=== PATIENT | female | born 1980 | race Caucasian/White ===

== ENCOUNTER 2017-11-04 03:58 | Emergency (ER) | payer SELFPAY ==
[~2017-11-04] VITALS: Ht 157.5 cm; Wt 131.5 kg
--- NOTE | 2017-11-04 05:21 | NUR ---
Pt stable for discharge per Dr. Tucker. Pt given ACI. Pt verbalized understanding of dc instructions. Pt ambulated to 's room with steady gait to wait for his disposition
[2017-11-04 05:24] VITALS: BP 157/86
== END 2017-11-04 05:24 | disposition home or self-care (01) ==
LOC: ER 04:01
DX: J20.9 Acute bronchitis, unspecified (principal); M32.9 Systemic lupus erythematosus, unspecified; E66.01 Morbid (severe) obesity due to excess calories; Z88.0 Allergy status to penicillin
CPT/HCPCS: 71010; A4663

== ENCOUNTER 2018-10-05 03:21 | Emergency (ER) | payer SELFPAY ==
[~2018-10-05] VITALS: Ht 157.5 cm; Wt 113.4 kg
[2018-10-05] MEDS ORDERED: ALBUTEROL SULFATE 2.5 MG/3 ML NEBU NEB ONE (03:30)
[2018-10-05] MEDS ORDERED: IPRATROPIUM BROMIDE 0.5 MG/2.5 ML NEBU NEB ONE (03:30)
[2018-10-05] MEDS ORDERED: IPRATROPIUM BROMIDE 0.5 MG/2.5 ML NEBU ONE ×2 (03:35→03:58)
[2018-10-05] MEDS ORDERED: ALBUTEROL SULFATE 2.5 MG/3 ML NEBU ONE ×2 (03:35→03:58)
[2018-10-05 03:45] LABS: BASOPHILS # (AUTO) 0.1 K/uL (0.0-8.0); EOSINOPHILS # (AUTO) 0.4 K/uL (0.0-0.7); EOSINOPHILS % (AUTO) 5.8 % (0.0-7.0); HEMATOCRIT 36.1 % (31.2-41.9); LYMPHOCYTES # (AUTO) 2.5 K/uL (20.0-40.0); LYMPHOCYTES % (AUTO) 41.7 % (20.5-51.5); MEAN CORPUSCULAR HEMOGLOBIN 27.3 uug (24.7-32.8); MEAN CORPUSCULAR HGB CONC 33 g/dL (32.3-35.6); MEAN CORPUSCULAR VOLUME 82.3 fL (75.5-95.3); MONOCYTES # (AUTO) 0.4 K/uL (2.0-10.0); MONOCYTES % (AUTO) 6.9 % (0.0-11.0); NEUTROPHILS # (AUTO) 2.7 K/uL (1.8-8.9); NEUTROPHILS % (AUTO) 44.6 % (38.5-71.5); PLATELET COUNT (AUTO) 309 K/uL (179-408); RED BLOOD CELL COUNT(AUTO) 4.38 MIL/uL (3.63-4.92); WHITE BLOOD COUNT (AUTO) 6.1 K/uL (3.8-11.8)
[2018-10-05 03:52] LABS: CREATININE 0.9 mg/dL (0.6-1.3); POTASSIUM 3.9 mmol/L (3.5-5.1)
--- NOTE | 2018-10-05 03:52 | NUR ---
Pt. walked into ED c/o SOB, has difficulty speaking full and complete sentences d/t SOB,
[2018-10-05] MEDS: IPRATROPIUM BROMIDE 0.5 MG/2.5 ML NEBU NEB ONE ×2 (03:59→04:02)
[2018-10-05] MEDS: ALBUTEROL SULFATE 2.5 MG/3 ML NEBU NEB ONE ×2 (03:59→04:02)
[2018-10-05] MEDS ORDERED: predniSONE 10 MG TABLET PO ONE (04:00)
[2018-10-05] MEDS ORDERED: predniSONE 10 MG TABLET ONE (04:02)
--- NOTE | 2018-10-05 04:50 | NUR ---
Patient discharged to home in stable conditon. Written and verbal after care instructions given. Patient verbalizes understanding of instructions. Pt. d/c w/ prescription per MD order, left w/ all belongings, VSS, no acute distress
[2018-10-05 04:52] VITALS: BP 152/87
== END 2018-10-05 04:53 | disposition home or self-care (01) ==
LOC: ER 03:23
DX: J98.01 Acute bronchospasm (principal); R06.00 Dyspnea, unspecified; E66.9 Obesity, unspecified; Z88.0 Allergy status to penicillin
CPT/HCPCS: 36415; 71045; 80048; 83880; 84484; 84702; 85025; 85379; 93005; 94640 ×2; 99284; J7512; 70030-TC; A4663; J3590

== ENCOUNTER 2019-01-17 22:09 | Emergency (ER) | payer SELFPAY ==
[~2019-01-17] VITALS: Ht 157.5 cm; Wt 90.7 kg
--- NOTE | 2019-01-17 22:24 | NUR ---
Patient ambulated with stable gait. AAOx4. Speech is clear, and speaks in complete sentences. Patient came in for c/o L.Ear pain x 1day. Patient abruptly woke up in the middle of the night experiencing throbbing/dull pain. Pain is 7/10 when talking and chewing. Pain is 4/10 when steady. No c/o of any dizziness. Patient in bed at lowest position, side rails upx2, call light within reach. Fall precautions implemented per protocol.
[2019-01-17 22:33] VITALS: BP 161/89
== END 2019-01-17 22:33 | disposition home or self-care (01) ==
LOC: ER 22:10
DX: H66.92 Otitis media, unspecified, left ear (principal); Z88.0 Allergy status to penicillin
CPT/HCPCS: A4663

== ENCOUNTER 2019-02-20 18:11 | Emergency (ER) | payer MEDICAID ==
[~2019-02-20] VITALS: Ht 157.5 cm; Wt 90.7 kg
[2019-02-20] MEDS ORDERED: diphenhydrAMINE 50 MG/1 ML VIAL IM ONE (18:45)
[2019-02-20] MEDS ORDERED: predniSONE 20 MG TABLET PO ONE (18:45)
[2019-02-20] MEDS ORDERED: predniSONE 50 MG TABLET ONE (18:48)
[2019-02-20] MEDS ORDERED: diphenhydrAMINE 50 MG/1 ML VIAL ONE (18:48)
[2019-02-20] MEDS ORDERED: predniSONE 10 MG TABLET ONE (18:48)
--- NOTE | 2019-02-20 19:05 | NUR ---
SBAR to KATEY Ramsey
[2019-02-20] MEDS ORDERED: DEXAMETHASONE SOD PHOSPHATE 4 MG INJ IV ONE (20:30)
[2019-02-20] MEDS ORDERED: DEXAMETHASONE SOD PHOSPHATE 4 MG INJ ONE (21:06)
--- NOTE | 2019-02-20 21:17 | NUR ---
Patient discharged to home in stable conditon. Written and verbal after care instructions given. Patient verbalizes understanding of instructions. Pt ambulated out of ER with steady gait, no acute signs of distress, VSS, all belongings taken, IV site discontinued.
[2019-02-20 21:18] VITALS: BP 162/75
== END 2019-02-20 21:19 | disposition home or self-care (01) ==
LOC: ER 18:11
DX: T78.3XXA Angioneurotic edema, initial encounter (principal); Z88.0 Allergy status to penicillin
CPT/HCPCS: 96372; 96374; 99283; J1100; J1200; J7512 ×2; A4663

== ENCOUNTER 2019-03-12 23:13 | Emergency (ER) | payer MEDICAID ==
[~2019-03-12] VITALS: Ht 160 cm; Wt 117.9 kg
--- NOTE | 2019-03-12 23:19 | NUR ---
Dr. Osorio at bedside for MSE.
[2019-03-12] MEDS ORDERED: methylPREDNISolone SOD SUCC 125 MG/2 ML VIAL ONE (23:29)
[2019-03-12] MEDS ORDERED: diphenhydrAMINE 50 MG/1 ML VIAL ONE (23:29)
[2019-03-12] MEDS ORDERED: FAMOTIDINE. 20 MG/2 ML VIAL IV ONE ×2 (23:29→23:30)
[2019-03-12] MEDS ORDERED: methylPREDNISolone SOD SUCC 125 MG/2 ML VIAL IV ONE (23:30)
[2019-03-12] MEDS ORDERED: IV NORMAL SALINE 1000 ML BAG IV ONE (23:30)
[2019-03-12] MEDS ORDERED: EPINEPHRINE 1 MG/1 ML AMP ONE (23:30)
[2019-03-12] MEDS ORDERED: diphenhydrAMINE 50 MG/1 ML VIAL IV ONE (23:30)
[2019-03-12] MEDS ORDERED: EPINEPHRINE 1 MG/1 ML AMP SQ ONE (23:30)
[2019-03-13 00:51] VITALS: BP 143/77
== END 2019-03-13 00:51 | disposition home or self-care (01) ==
LOC: ER 23:13
DX: T78.3XXA Angioneurotic edema, initial encounter (principal); R60.9 Edema, unspecified; Z79.1 Long term (current) use of non-steroidal anti-inflammatories (NSAID); Z88.0 Allergy status to penicillin; Z88.8 Allergy status to other drugs, medicaments and biological substances
CPT/HCPCS: 93005; 96372; 96374; 96375; 99283; J0171; J1200; J2930; J3490; A4663; J7030

== ENCOUNTER 2019-07-17 21:49 | Emergency (ER) | payer SELFPAY ==
[~2019-07-17] VITALS: Ht 157.5 cm; Wt 104.3 kg
--- NOTE | 2019-07-17 22:42 | NUR ---
Patient ambulated with stable gait. Speech clear, speaks in complete sentences. No neuro deficits. Patient came for c/o sob and pain/discomfort x5 days. Patient has non-productive cough. No cardiovascular distress noted. Denies any n/v/d.
--- NOTE | 2019-07-17 22:44 | NUR ---
Dr. Osorio at bedside for MSE
[2019-07-17 23:10] LABS: BASOPHILS # (AUTO) 0.1 K/uL (0.0-8.0); BASOPHILS % (AUTO) 0.8 % (0.0-2.0); EOSINOPHILS # (AUTO) 0.4 K/uL (0.0-0.7); EOSINOPHILS % (AUTO) 4.9 % (0.0-7.0); HEMATOCRIT 30.2 % (31.2-41.9); LYMPHOCYTES # (AUTO) 2.7 K/uL (20.0-40.0); LYMPHOCYTES % (AUTO) 34.2 % (20.5-51.5); MEAN CORPUSCULAR HEMOGLOBIN 23.4 uug (24.7-32.8); MEAN CORPUSCULAR HGB CONC 33 g/dL (32.3-35.6); MEAN CORPUSCULAR VOLUME 70.9 fL (75.5-95.3); MONOCYTES # (AUTO) 0.6 K/uL (2.0-10.0); MONOCYTES % (AUTO) 7.2 % (0.0-11.0); NEUTROPHILS # (AUTO) 4.2 K/uL (1.8-8.9); NEUTROPHILS % (AUTO) 52.9 % (38.5-71.5); PLATELET COUNT (AUTO) 321 K/uL (179-408); RED BLOOD CELL COUNT(AUTO) 4.26 MIL/uL (3.63-4.92)
[2019-07-17 23:10] LABS: *URINE HCG, QUAL NEGATIVE (NEGATIVE)
[2019-07-17 23:19] LABS: CREATININE 0.7 mg/dL (0.6-1.3); POTASSIUM 3.5 mmol/L (3.5-5.1)
--- NOTE | 2019-07-17 23:32 | NUR ---
RT called for breathing tx, Imtiaz stated he will be on the way
[2019-07-17 23:39] LABS: EOSINOPHILS % (MANUAL) 4 % (0-8); LYMPHOCYTES % (MANUAL) 32 % (20-40); MONOCYTES % (MANUAL) 6 % (2-10); NEUTROPHILS % (MANUAL) 58 % (42-75)
[2019-07-17] MEDS ORDERED: ALBUTEROL SULFATE 2.5 MG/3 ML NEBU ONE (23:43)
[2019-07-17] MEDS ORDERED: ALBUTEROL SULFATE 2.5 MG/3 ML NEBU NEB ONE (23:45)
[2019-07-18] MEDS ORDERED: predniSONE 20 MG TABLET PO ONE
[2019-07-18] MEDS ORDERED: predniSONE 20 MG TABLET ONE (00:02)
--- NOTE | 2019-07-18 00:11 | NUR ---
Patient discharged to home in stable conditon. Written and verbal after care instructions given. Patient verbalizes understanding of instructions. Patient ambulated with stable gait.
[2019-07-18 00:12] VITALS: BP 119/87
== END 2019-07-18 00:13 | disposition home or self-care (01) ==
LOC: ER 21:50
DX: R06.02 Shortness of breath (principal); R05 Cough; Z88.0 Allergy status to penicillin; Z88.8 Allergy status to other drugs, medicaments and biological substances
CPT/HCPCS: 36415; 71045; 80048; 83880; 84484; 84703; 85025; 85379; 85651; 93005; 94640; 99284; J7512; 70030-TC; A4663

== ENCOUNTER 2021-04-27 11:12 | Emergency (ER) | payer SELFPAY ==
[~2021-04-27] VITALS: Ht 157.5 cm; Wt 104.3 kg
--- NOTE | 2021-04-27 11:35 | NUR ---
Dr Franklin at bedside for MSE.
[2021-04-27] MEDS ORDERED: TRAMADOL HCL 50 MG TABLET PO ONE (11:45)
[2021-04-27] MEDS ORDERED: TRAMADOL HCL 50 MG TABLET ONE (11:50)
[2021-04-27] MEDS ORDERED: TRAM50TA2 PO (12:45)
--- NOTE | 2021-04-27 12:59 | NUR ---
Pt has been cleared by ER MD. Patient discharged to home in stable condition. Written and verbal after care instructions given. Patient verbalizes understanding of instructions. Stressed follow up or return to ER for worsening s/s. Ambulated out of ED in steady gait.
[2021-04-27 13:06] VITALS: BP 120/75
== END 2021-04-27 13:07 | disposition home or self-care (01) ==
LOC: ER 11:13
DX: M25.532 Pain in left wrist (principal); M32.9 Systemic lupus erythematosus, unspecified; E66.01 Morbid (severe) obesity due to excess calories; Z68.41 Body mass index [BMI] 40.0-44.9, adult; Z88.6 Allergy status to analgesic agent; Z88.0 Allergy status to penicillin; M19.90 Unspecified osteoarthritis, unspecified site; Z87.442 Personal history of urinary calculi; Z82.5 Family history of asthma and other chronic lower respiratory diseases
CPT/HCPCS: 73110; A4663

== ENCOUNTER 2021-10-04 20:15 | Emergency (ER) | payer SELFPAY ==
[~2021-10-04] VITALS: Ht 162.6 cm; Wt 119.7 kg
[~2021-10-04 20:15] MED LIST: TRAM50TA2 PO
--- NOTE | 2021-10-04 20:30 | NUR ---
ERMD into eval patient.
[2021-10-04 21:09] LABS: *BILIRUBIN,URIN NEGATIVE (NEGATIVE); *BLOOD, URINE 3+ (NEGATIVE); *CLARITY,URINE CLEAR (CLEAR); *COLOR,URINE YELLOW (YELLOW); *KETONES,URINE NEGATIVE (NEGATIVE); *UROBILINOGEN,URINE 0.2 E.U./dl (NORMAL); LEUKOCYTE ESTERASE ,URINE 1+ (NEGATIVE); NITRITE, URINE NEGATIVE (NEGATIVE); UGLUCOSE NEGATIVE (NEGATIVE)
[2021-10-04 21:21] LABS: *URINE HCG, QUAL NEGATIVE (NEGATIVE); RBC,URINE 20-50 /HPF (0-3)
[2021-10-04 21:22] LABS: BACTERIA,URINE MODERATE /HPF (NONE SEEN); SQUAMOUS EPITHELIAL CELL,UR MODERATE /HPF (NONE SEEN)
[2021-10-04] MEDS ORDERED: TRAM50TA2 PO ×2 (21:57→22:27)
[2021-10-04 22:32] VITALS: BP 142/78
--- NOTE | 2021-10-04 22:32 | NUR ---
Patient discharged to home in stable condition. Written and verbal after care instructions given. Patient verbalizes understanding of instructions. Stressed follow up or return to ER for worsening s/s.
== END 2021-10-04 22:33 | disposition home or self-care (01) ==
LOC: ER 20:16
DX: S23.3XXA Sprain of ligaments of thoracic spine, initial encounter (principal); R07.89 Other chest pain; V49.50XA Passenger injured in collision with unspecified motor vehicles in traffic accident, initial encounter; Y92.415 Exit ramp or entrance ramp of street or highway as the place of occurrence of the external cause
CPT/HCPCS: 84703; 87086; 93005; A4663

== ENCOUNTER 2021-12-20 17:10 | Emergency (ER) | payer SELFPAY ==
[~2021-12-20] VITALS: Ht 162.6 cm; Wt 113.4 kg
[2021-12-20] MEDS ORDERED: ALBUTEROL SULFATE 2.5 MG/ 0.5 ML NEBU NEB ONE (17:45)
[2021-12-20] MEDS ORDERED: predniSONE 20 MG TABLET PO ONE (17:45)
[2021-12-20] MEDS ORDERED: diphenhydrAMINE 25 MG CAP PO ONE ×2 (17:45→17:50)
[2021-12-20] MEDS ORDERED: predniSONE 20 MG TABLET ONE (17:50)
[2021-12-20] MEDS ORDERED: ALBUTEROL SULFATE 2.5 MG/3 ML NEBU ONE (17:55)
[2021-12-20 18:08] LABS: BILIRUBIN,TOTAL 0.6 mg/dL (0.2-1.0); CREATININE 0.7 mg/dL (0.6-1.3); POTASSIUM 3.4 mmol/L (3.5-5.1); TOTAL PROTEIN, SERUM 8.1 g/dL (6.4-8.2)
[2021-12-20 18:25] LABS: HEMATOCRIT 26.9 % (31.2-41.9); MEAN CORPUSCULAR HEMOGLOBIN 18.6 uug (24.7-32.8); MEAN CORPUSCULAR VOLUME 60.8 fL (75.5-95.3); PLATELET COUNT (AUTO) 358 K/uL (179-408)
--- NOTE | 2021-12-20 18:31 | NUR ---
Pt states great improvement in S/S.
[2021-12-20 18:49] VITALS: BP 132/70
[2021-12-20 20:50] LABS: EOSINOPHILS % (MANUAL) 7 % (0-8); LYMPHOCYTES % (MANUAL) 25 % (20-40); MONOCYTES % (MANUAL) 4 % (2-10); NEUTROPHILS % (MANUAL) 64 % (42-75)
== END 2021-12-20 18:49 | disposition home or self-care (01) ==
LOC: ER 17:11
DX: T78.40XA Allergy, unspecified, initial encounter (principal); R07.0 Pain in throat; X58.XXXA Exposure to other specified factors, initial encounter; M32.9 Systemic lupus erythematosus, unspecified; Z82.5 Family history of asthma and other chronic lower respiratory diseases; E66.01 Morbid (severe) obesity due to excess calories; Z68.41 Body mass index [BMI] 40.0-44.9, adult; Z88.6 Allergy status to analgesic agent; Z88.0 Allergy status to penicillin
CPT/HCPCS: 36415; 71045; 80053; 84484; 85007; 85025; 93005; 94640; 99285; J7512; Q0163; 70030-TC; A4663

== ENCOUNTER 2022-03-17 04:55 | Emergency (ER) | payer MEDICAID ==
[~2022-03-17] VITALS: Ht 157.5 cm; Wt 108.9 kg
--- NOTE | 2022-03-17 04:58 | NUR ---
DR. LOPEZ AT BEDSIDE, MSE IN PROGRESS.
--- NOTE | 2022-03-17 05:02 | NUR ---
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 PT A/O X4, DENIES CP/PRESSURE. NO N/V/D. CLEAR SPEECH, COMPLETE SENTENCES.
[2022-03-17] MEDS ORDERED: EPINEPHRINE 1 MG/1 ML AMP ONE (05:05)
--- NOTE | 2022-03-17 05:10 | NUR ---
RT at bedside.
[2022-03-17] MEDS ORDERED: diphenhydrAMINE 50 MG/1 ML VIAL IV ONE (05:15)
[2022-03-17] MEDS ORDERED: methylPREDNISolone SOD SUCC 125 MG/2 ML VIAL IV ONE (05:15)
[2022-03-17] MEDS ORDERED: ALBUTEROL SULFATE 2.5 MG/3 ML NEBU NEB ONE (05:15)
[2022-03-17] MEDS ORDERED: IPRATROPIUM BROMIDE 0.5 MG/2.5 ML NEBU NEB ONE (05:15)
[2022-03-17] MEDS ORDERED: EPINEPHRINE 1 MG/1 ML AMP SQ ONE (05:15)
[2022-03-17] MEDS ORDERED: ALBUTEROL SULFATE 2.5 MG/3 ML NEBU ONE (05:16)
[2022-03-17] MEDS ORDERED: IPRATROPIUM BROMIDE 0.5 MG/2.5 ML NEBU ONE (05:16)
[2022-03-17] MEDS ORDERED: diphenhydrAMINE 50 MG/1 ML VIAL ONE (05:17)
[2022-03-17] MEDS ORDERED: methylPREDNISolone SOD SUCC 125 MG/2 ML VIAL ONE (05:17)
[2022-03-17] MEDS ORDERED: EPIN0.3P3 IM (06:06)
--- NOTE | 2022-03-17 07:13 | NUR ---
Received pt resting in bed, on monitor, and in NAD.
[2022-03-17] MEDS ORDERED: FAMO-132 PO (07:27)
[2022-03-17] MEDS ORDERED: DIPH25TA62 PO (07:27)
[2022-03-17] MEDS ORDERED: PRED50TA PO (07:27)
[2022-03-17] MEDS ORDERED: ALBU8.5H8 INH (07:27)
[2022-03-17 07:43] VITALS: BP 130/55
[2022-03-17 07:49] LABS: *URINE HCG, QUAL NEG (NEGATIVE)
--- NOTE | 2022-03-17 07:55 | NUR ---
IV removed. Catheter intact and site benign. Pressure and 4x4 gauze applied to site. No bleeding noted.
== END 2022-03-17 08:08 | disposition home or self-care (01) ==
LOC: ER 05:00
DX: R60.9 Edema, unspecified (principal); T88.6XXA Anaphylactic reaction due to adverse effect of correct drug or medicament properly administered, initial encounter; T39.395A Adverse effect of other nonsteroidal anti-inflammatory drugs [NSAID], initial encounter; Y92.019 Unspecified place in single-family (private) house as the place of occurrence of the external cause; M32.9 Systemic lupus erythematosus, unspecified; Z82.5 Family history of asthma and other chronic lower respiratory diseases; Z88.6 Allergy status to analgesic agent; Z88.0 Allergy status to penicillin; E66.01 Morbid (severe) obesity due to excess calories; Z68.41 Body mass index [BMI] 40.0-44.9, adult
CPT/HCPCS: 84703; 93005; 94640; 96372; 96374; 96375; 99291; J0171; J1200; J2930; J3590

== ENCOUNTER 2022-05-30 13:00 | Emergency (ER) | payer SELFPAY ==
[~2022-05-30] VITALS: Ht 157.5 cm; Wt 108.9 kg
[~2022-05-30 13:00] MED LIST changes: +ALBU8.5H8 INH; +DIPH25TA62 PO; +EPIN0.3P3 IM; +FAMO-132 PO; +PRED50TA PO
[2022-05-30] MEDS ORDERED: LEVO750T46 PO (14:42)
[2022-05-30 14:47] VITALS: BP 138/73
== END 2022-05-30 14:48 | disposition home or self-care (01) ==
LOC: ER 13:00
DX: H66.92 Otitis media, unspecified, left ear (principal); Z82.5 Family history of asthma and other chronic lower respiratory diseases; E66.01 Morbid (severe) obesity due to excess calories; Z68.41 Body mass index [BMI] 40.0-44.9, adult; M32.9 Systemic lupus erythematosus, unspecified; Z87.442 Personal history of urinary calculi; Z88.6 Allergy status to analgesic agent; Z88.0 Allergy status to penicillin
CPT/HCPCS: A4663

== ENCOUNTER 2022-09-04 13:09 | Emergency (ER) | payer MEDICAID ==
[~2022-09-04] VITALS: Ht 157.5 cm; Wt 108.9 kg
[~2022-09-04 13:09] MED LIST changes: +LEVO750T46 PO
--- NOTE | 2022-09-04 13:34 | NUR ---
[email or web address], medical screening exam in progress
[2022-09-04 14:07] LABS: HEMATOCRIT 26.2 % (31.2-41.9); MEAN CORPUSCULAR HEMOGLOBIN 18.1 uug (24.7-32.8); MEAN CORPUSCULAR VOLUME 59.8 fL (75.5-95.3); PLATELET COUNT (AUTO) 314 K/uL (179-408)
[2022-09-04 14:16] LABS: *URINE HCG, QUAL NEGATIVE (NEGATIVE)
[2022-09-04 14:27] LABS: BILIRUBIN,TOTAL 0.6 mg/dL (0.2-1.0); CREATININE 0.7 mg/dL (0.6-1.3); POTASSIUM 3.8 mmol/L (3.5-5.1); TOTAL PROTEIN, SERUM 7.9 g/dL (6.4-8.2)
[2022-09-04 14:38] LABS: EOSINOPHILS % (MANUAL) 2 % (0-8); LYMPHOCYTES % (MANUAL) 21 % (20-40); MONOCYTES % (MANUAL) 9 % (2-10); NEUTROPHILS % (MANUAL) 68 % (42-75)
[2022-09-04] MEDS ORDERED: SWABABLE VALVE TRANSFER SET EA MC ONE (14:45)
[2022-09-04] MEDS ORDERED: IOHEXOL 300MG/ML 100 ML INFUS..BTL ONE (14:45)
[2022-09-04] MEDS ORDERED: IV NORMAL SALINE 250 ML IV ONE (14:45)
[2022-09-04] MEDS ORDERED: ONDANSETRON 4 MG/2 ML VIAL ONE (16:41)
[2022-09-04] MEDS ORDERED: MORPHINE SULFATE 2 MG/1 ML DISP.SYRIN ONE (16:41)
[2022-09-04] MEDS ORDERED: MORPHINE SULFATE 2 MG/1 ML DISP.SYRIN IV ONE (16:45)
[2022-09-04] MEDS ORDERED: ONDANSETRON 4 MG/2 ML VIAL IV ONE (16:45)
[2022-09-04] MEDS ORDERED: DOXY100T2 PO (16:52)
[2022-09-04] MEDS ORDERED: FERR325T28 PO (16:52)
[2022-09-04] MEDS ORDERED: OFLO5DRO5 LEFT EAR (16:53)
--- NOTE | 2022-09-04 17:03 | NUR ---
IV removed. Catheter intact and site benign. Pressure and 4x4 gauze applied to site. No bleeding noted. Patient discharged to home in stable condition with brisk steady gait. Written and verbal after care instructions given. Patient verbalized understanding and compliance of instructions. Stressed follow up with primary doctor or return to ER for worsening s/s. Patient said that her spouse is picking her up and that she will not drive today.
== END 2022-09-04 17:03 | disposition home or self-care (01) ==
LOC: ER 13:10
DX: H66.92 Otitis media, unspecified, left ear (principal); H60.92 Unspecified otitis externa, left ear; D50.9 Iron deficiency anemia, unspecified; Z20.822 Contact with and (suspected) exposure to COVID-19; Z87.892 Personal history of anaphylaxis; Z88.6 Allergy status to analgesic agent; Z88.0 Allergy status to penicillin; Z82.5 Family history of asthma and other chronic lower respiratory diseases; E66.01 Morbid (severe) obesity due to excess calories; Z68.39 Body mass index [BMI] 39.0-39.9, adult; M32.9 Systemic lupus erythematosus, unspecified; Z87.19 Personal history of other diseases of the digestive system
CPT/HCPCS: 99285; 96374; 96375; 87426; 80053; 84703; 85025; 85610; 85651; 86140; 87040; 36415; 85007; J2405; Q9967; J2270; 70030-TC; A4663

== ENCOUNTER 2025-10-11 14:01 | Emergency (ER) | payer MEDICAID ==
[~2025-10-11] VITALS: Ht 160 cm; Wt 104.3 kg
[~2025-10-11 14:01] MED LIST changes: +DOXY100T2 PO; +FERR325T28 PO; -LEVO750T46 PO; +OFLO5DRO5 LEFT EAR; -PRED50TA PO; -TRAM50TA2 PO
[2025-10-11 14:04] VITALS: BP 132/64
[2025-10-11] MEDS ORDERED: ONDANSETRON 4 MG/2 ML VIAL ONE (14:33)
[2025-10-11] MEDS ORDERED: MAG HYDROX/AL HYDROX/SIMETH 30 ML LIQUID UDC ONE (14:33)
[2025-10-11] MEDS ORDERED: FAMOTIDINE. 20 MG/2 ML VIAL IV ONE (14:33)
[2025-10-11 14:35] LABS: PLATELET COUNT (AUTO) 277 K/uL (179-408); RED BLOOD CELL COUNT(AUTO) 4.44 MIL/uL (3.63-4.92); RED CELL DISTRIBUTION WIDTH 19.6 % (12.3-17.7); WHITE BLOOD COUNT (AUTO) 5.2 K/uL (3.8-11.8)
[2025-10-11 14:40] LABS: CREATININE 0.7 mg/dL (0.6-1.3); SODIUM SERUM 138.0 mmol/L (136-145); UREA NITROGEN, BLOOD 9.0 mg/dL (7-18)
[2025-10-11] MEDS: MAG HYDROX/AL HYDROX/SIMETH 30 ML LIQUID UDC PO ONE (14:41)
[2025-10-11] MEDS: IV NORMAL SALINE 1000 ML BAG IV ONE (14:41)
[2025-10-11] MEDS: ONDANSETRON 4 MG/2 ML VIAL IV ONE (14:41)
[2025-10-11] MEDS: FAMOTIDINE. 20 MG/2 ML VIAL IV ONE (14:41)
[2025-10-11 14:46] LABS: ASPARTATE AMINOTRANSFERASE 15.0 U/L (15-37); TOTAL PROTEIN, SERUM 7.3 g/dL (6.4-8.2)
[2025-10-11 14:54] LABS: *BILIRUBIN,URIN NEGATIVE (NEGATIVE); *BLOOD, URINE NEGATIVE (NEGATIVE); *COLOR,URINE YELLOW (YELLOW); *KETONES,URINE NEGATIVE (NEGATIVE); *PROTEIN,URINE TRACE (NEGATIVE); *UROBILINOGEN,URINE 0.2 E.U./dl (NORMAL); LEUKOCYTE ESTERASE ,URINE TRACE (NEGATIVE); NITRITE, URINE NEGATIVE (NEGATIVE); UGLUCOSE NEGATIVE (NEGATIVE)
[2025-10-11 14:57] LABS: *CLARITY,URINE SLIGHTLY CLOUDY (CLEAR)
[2025-10-11 15:05] LABS: *URINE HCG, QUAL NEGATIVE (NEGATIVE)
[2025-10-11 15:23] LABS: SQUAMOUS EPITHELIAL CELL,UR MODERATE /HPF (NONE SEEN)
[2025-10-11] MEDS ORDERED: FERR325T23 PO (15:29)
[2025-10-11] MEDS ORDERED: PANT20TA2 PO (15:29)
[2025-10-11] MEDS ORDERED: ONDA-243 PO (15:29)
[2025-10-11 16:02] VITALS: BP 132/64; TEMP 98; O2SAT 95
== END 2025-10-11 16:03 | disposition home or self-care (01) ==
LOC: ER 14:22
DX: D50.9 Iron deficiency anemia, unspecified (principal); R10.84 Generalized abdominal pain; R11.2 Nausea with vomiting, unspecified; R19.7 Diarrhea, unspecified; E66.01 Morbid (severe) obesity due to excess calories; Z68.41 Body mass index [BMI] 40.0-44.9, adult; Z87.19 Personal history of other diseases of the digestive system; Z88.0 Allergy status to penicillin; Z88.6 Allergy status to analgesic agent
CPT/HCPCS: 99284; 96374; 96361; 96375; 80076; 80048; 81001; 84703; 83690; 85025; 87086; 36415; J1308; J2405; J7040; A4606; A4663